=== PATIENT | female | born 1935 | race Caucasian/White ===

== ENCOUNTER 2024-04-19 10:45 | Inpatient (IN) | payer BC, MEDICARE ==
[~2024-04-19] VITALS: Ht 157.5 cm; Wt 53.5 kg
[2024-04-19] MEDS ORDERED: SYNTHROID (11:31)
[2024-04-19] MEDS ORDERED: TOPROL XL (11:31)
[2024-04-19] MEDS ORDERED: LORTAB (11:31)
[2024-04-19] MEDS ORDERED: ATIVAN (11:31)
[2024-04-19] MEDS ORDERED: LOTREL (11:31)
[2024-04-19] MEDS ORDERED: TRAMADOL (11:31)
[2024-04-19 12:00] LABS: CALCIUM 8.5 mg/dL (8.5-10.1); CARBON DIOXIDE 23 mmol/L (21-32); CHLORIDE 106 mmol/L (98-107); CREATININE 1.2 mg/dL (0.6-1.3); EOSINOPHILS % (AUTO) 0.1 % (0.0-7.0); GLUCOSE 152 mg/dL (74-106); LYMPHOCYTES # (AUTO) 0.9 K/uL (0.8-4.8); NEUTROPHILS % (AUTO) 86.8 % (38.5-71.5); POTASSIUM 4.7 mmol/L (3.5-5.1); SODIUM SERUM 140 mmol/L (136-145); UREA NITROGEN, BLOOD 54 mg/dL (7-18)
[2024-04-19 12:01] LABS: BASOPHILS % (AUTO) 0.2 % (0.0-2.0); LYMPHOCYTES % (AUTO) 7.6 % (20.5-51.5); MEAN CORPUSCULAR HEMOGLOBIN 31.5 uug (24.7-32.8); MEAN CORPUSCULAR HGB CONC 31 g/dL (32.3-35.6); MEAN CORPUSCULAR VOLUME 101.4 fL (75.5-95.3); MONOCYTES # (AUTO) 0.7 K/uL (0.1-1.30); MONOCYTES % (AUTO) 5.3 % (0.0-11.0); NEUTROPHILS # (AUTO) 10.7 K/uL (1.8-8.9); PLATELET COUNT (AUTO) 160 K/uL (179-408); RED CELL DISTRIBUTION WIDTH 16.8 % (12.3-17.7); WHITE BLOOD COUNT (AUTO) 12.3 K/uL (3.8-11.8)
[2024-04-19 12:03] LABS: *BILIRUBIN,URIN NEGATIVE (NEGATIVE); *BLOOD, URINE NEGATIVE (NEGATIVE); *CLARITY,URINE CLEAR (CLEAR); *COLOR,URINE YELLOW (YELLOW); *KETONES,URINE NEGATIVE (NEGATIVE); *PROTEIN,URINE NEGATIVE (NEGATIVE); *UROBILINOGEN,URINE 0.2 E.U./dl (NORMAL); LEUKOCYTE ESTERASE ,URINE NEGATIVE (NEGATIVE); NITRITE, URINE NEGATIVE (NEGATIVE); PH,URINE 5.5 (5.0-8.0); RED BLOOD CELL COUNT(AUTO) 1.38 MIL/uL (3.63-4.92); UGLUCOSE NEGATIVE (NEGATIVE)
[2024-04-19 12:04] LABS: DIFFERENTIAL COMMENT 1; HEMOGLOBIN 4.3 g/dL (10.9-14.3)
[2024-04-19 12:08] LABS: ALANINE AMINOTRANSFERASE 16 U/L (14-59); ALBUMIN 2.6 g/dL (3.4-5.0); ALKALINE PHOSPHATASE 33 U/L (50-136); ASPARTATE AMINOTRANSFERASE 14 U/L (15-37); BILIRUBIN,DIRECT 0.2 mg/dL (0.0-0.2); BILIRUBIN,TOTAL 0.6 mg/dL (0.2-1.0)
[2024-04-19 12:13] LABS: THYROID STIMULATING HORMONE 6.476 mIU/mL (0.358-3.740)
[2024-04-19 12:25] LABS: LACTIC ACID 3.5 mmol/L (0.4-2.0)
[2024-04-19 12:31] LABS: BAND % (MANUAL) 1 % (0-10); LYMPHOCYTES % (MANUAL) 5 % (20-40); MONOCYTES % (MANUAL) 7 % (2-10); NEUTROPHILS % (MANUAL) 87 % (42-75)
[2024-04-19] MEDS: IV NORMAL SALINE 1000 ML BAG IV ONE (12:33)
[2024-04-19] MEDS ORDERED: PANTOPRAZOLE SODIUM 40 MG VIAL ONE (12:35)
[2024-04-19] MEDS: PANTOPRAZOLE SODIUM 40 MG VIAL IV ONE (12:42)
[2024-04-19 13:16] LABS: *OCCULT BLOOD STOOL POSITIVE (NEGATIVE)
[2024-04-19 13:18] LABS: NT-PRO BNP 10333 pg/mL (0-125)
[2024-04-19] MEDS ORDERED: HYDROCODONE/APAP 5-325MG TABLET ONE (14:33)
[2024-04-19] MEDS ORDERED: HYDROCODONE/APAP 10-325 MG TABLET ONE ×2 (14:35→21:11)
[2024-04-19] MEDS: HYDROCODONE/APAP 10-325 MG TABLET PO ONE (14:43)
[2024-04-19] MEDS ORDERED: MAGNESIUM HYDROXIDE 30 ML LIQUID UDC PO PRN (14:45)
[2024-04-19] MEDS ORDERED: ACETAMINOPHEN 325 MG TABLET PO PRN (14:45)
[2024-04-19] MEDS ORDERED: REMEDY ESSENTIAL ZINC PASTE 113 GM TP PRN (14:45)
[2024-04-19] MEDS ORDERED: ONDANSETRON 4 MG/2 ML VIAL IV PRN (14:45)
[2024-04-19] MEDS ORDERED: HYDR-3980 PO (15:06)
[2024-04-19] MEDS ORDERED: ZOLP5TAB8 PO (15:06)
[2024-04-19] MEDS ORDERED: PANT40TA49 PO (15:06)
[2024-04-19] MEDS ORDERED: HYDR200T4 PO (15:06)
[2024-04-19] MEDS ORDERED: LEVO112T5 PO (15:06)
[2024-04-19] MEDS ORDERED: LORA0.5T48 PO (15:06)
[2024-04-19] MEDS ORDERED: EPIN0.3A4 IM (15:06)
[2024-04-19] MEDS ORDERED: METO-356 PO (15:06)
[2024-04-19] MEDS ORDERED: DENO60DI (15:06)
[2024-04-19 15:44] LABS: IRON, SERUM 51 ug/dL (50-175)
[2024-04-19] MEDS ORDERED: CYANOCOBALAMIN 1000 MCG/ML VIAL ONE (16:23)
[2024-04-19] MEDS: CYANOCOBALAMIN 1000 MCG/ML VIAL IM ONE (16:24)
[2024-04-19] MEDS ORDERED: MAG HYDROX/AL HYDROX/SIMETH 30 ML LIQUID UDC ONE (17:00)
[2024-04-19] MEDS: MAG HYDROX/AL HYDROX/SIMETH 30 ML LIQUID UDC PO ONE (17:06)
[2024-04-19 20:00] VITALS: BP 136/58; TEMP 97.7
[2024-04-19] MEDS: HYDROCODONE/APAP 10-325 MG TABLET PO PRN (21:18)
[2024-04-19 21:30] VITALS: BP 158/74; TEMP 98.5
[2024-04-19] MEDS ORDERED: PIPERACILLIN/TAZOBACTAM/D5W 50 ML IV ONE (21:30)
[2024-04-19] MEDS: PIPERACILLIN SODIUM/TAZOBACTAM 3.375 G in IV DEXTROSE 5% 50 ML IV ONE (21:33)
[2024-04-19 23:30] VITALS: BP 150/90; TEMP 98.5
[2024-04-20] VITALS (14 sets, daily range): BP systolic 131–172; BP diastolic 58–90; TEMP 97.7–98.7; O2SAT 97–98
[2024-04-20 00:17] LABS: LYMPHOCYTES # (AUTO) 0.8 K/uL (0.8-4.8); PLATELET COUNT (AUTO) 112 K/uL (179-408)
[2024-04-20 00:19] LABS: BASOPHILS % (AUTO) 0.2 % (0.0-2.0); EOSINOPHILS % (AUTO) 0.2 % (0.0-7.0); MEAN CORPUSCULAR HEMOGLOBIN 29.2 uug (24.7-32.8); MEAN CORPUSCULAR HGB CONC 33 g/dL (32.3-35.6); MEAN CORPUSCULAR VOLUME 87.8 fL (75.5-95.3); MONOCYTES # (AUTO) 0.8 K/uL (0.1-1.30); MONOCYTES % (AUTO) 8.3 % (0.0-11.0); NEUTROPHILS # (AUTO) 8.3 K/uL (1.8-8.9); NEUTROPHILS % (AUTO) 83.3 % (38.5-71.5); RED CELL DISTRIBUTION WIDTH 22.6 % (12.3-17.7)
[2024-04-20 00:26] LABS: RED BLOOD CELL COUNT(AUTO) 2.26 MIL/uL (3.63-4.92)
[2024-04-20 00:28] LABS: DIFFERENTIAL COMMENT 1; HEMATOCRIT 19.8 % (31.2-41.9); HEMOGLOBIN 6.6 g/dL (10.9-14.3)
[2024-04-20] MEDS: IV NS 1000 ML 1,000 ML IV PRN (03:36)
[2024-04-20 03:41] LABS: LYMPHOCYTES % (MANUAL) 27 % (20-40); MONOCYTES % (MANUAL) 6 % (2-10); NEUTROPHILS % (MANUAL) 67 % (42-75)
[2024-04-20] MEDS ORDERED: HYDROCODONE/APAP 10-325 MG TABLET ONE (04:18)
[2024-04-20] MEDS: PIPERACILLIN SODIUM/TAZOBACTAM 3.375 G in IV DEXTROSE 5% 50 ML IV SCH (05:15)
[2024-04-20] MEDS ORDERED: PIPERACILLIN/TAZOBACTAM/D5W 50 ML IV ONE (05:15)
[2024-04-20] MEDS ORDERED: PIPERACILLIN SODIUM/TAZOBACTAM 3.375 G in IV DEXTROSE 5% 50 ML IV SCH (06:00)
[2024-04-20 06:48] LABS: BASOPHILS % (AUTO) 0.5 % (0.0-2.0); DIFFERENTIAL COMMENT 0; EOSINOPHILS % (AUTO) 0.4 % (0.0-7.0); HEMATOCRIT 26.7 % (31.2-41.9); HEMOGLOBIN 9.1 g/dL (10.9-14.3); LYMPHOCYTES # (AUTO) 1.1 K/uL (0.8-4.8); LYMPHOCYTES % (AUTO) 13.3 % (20.5-51.5); MEAN CORPUSCULAR HEMOGLOBIN 31.1 uug (24.7-32.8); MEAN CORPUSCULAR HGB CONC 34 g/dL (32.3-35.6); MEAN CORPUSCULAR VOLUME 91.5 fL (75.5-95.3); MONOCYTES # (AUTO) 0.6 K/uL (0.1-1.30); MONOCYTES % (AUTO) 7.5 % (0.0-11.0); NEUTROPHILS # (AUTO) 6.4 K/uL (1.8-8.9); NEUTROPHILS % (AUTO) 78.3 % (38.5-71.5); PLATELET COUNT (AUTO) 115 K/uL (179-408); RED BLOOD CELL COUNT(AUTO) 2.91 MIL/uL (3.63-4.92); RED CELL DISTRIBUTION WIDTH 23.5 % (12.3-17.7); WHITE BLOOD COUNT (AUTO) 8.2 K/uL (3.8-11.8)
[2024-04-20 06:57] LABS: ALANINE AMINOTRANSFERASE 20 U/L (14-59); ALKALINE PHOSPHATASE 44 U/L (50-136); ASPARTATE AMINOTRANSFERASE 25 U/L (15-37); CALCIUM 8.6 mg/dL (8.5-10.1); CARBON DIOXIDE 27 mmol/L (21-32); CHLORIDE 109 mmol/L (98-107); CREATININE 1.3 mg/dL (0.6-1.3); GLUCOSE 95 mg/dL (74-106); MAGNESIUM 2.7 mg/dL (1.8-2.4); PHOSPHOROUS 3.1 mg/dL (2.5-4.9); SODIUM SERUM 143 mmol/L (136-145); TOTAL PROTEIN, SERUM 5.6 g/dL (6.4-8.2); UREA NITROGEN, BLOOD 42 mg/dL (7-18)
[2024-04-20 09:23] LABS: NEUTROPHILS % (MANUAL) 75 % (42-75)
[2024-04-20 09:24] LABS: ANISOCYTOSIS 2+; LYMPHOCYTES % (MANUAL) 10 % (20-40); METAMYELOCYTES % 2 % (0-1); MONOCYTES % (MANUAL) 11 % (2-10); MYELOCYTES % 2 % (0-0); PLATELET ESTIMATE DECREASED
[2024-04-20] MEDS ORDERED: LORAZEPAM 0.5 MG TABLET PO PRN (09:30)
[2024-04-20] MEDS: PANTOPRAZOLE SODIUM 40 MG VIAL IV SCH (09:38)
[2024-04-20] MEDS: LEVOTHYROXINE SODIUM 112 MCG TABLET PO SCH (09:39)
[2024-04-20] MEDS: METOPROLOL SUCCINATE XL 25 MG TAB.SR.24H PO SCH (09:39)
[2024-04-20] MEDS: PIPERACILLIN SODIUM/TAZOBACTAM 3.375 G in IV DEXTROSE 5% 100 ML IV SCH (12:50)
[2024-04-20 14:02] LABS: BASOPHILS # (AUTO) 0.1 K/UL (0.0-0.2); EOSINOPHILS % (AUTO) 0.6 % (0.0-7.0); HEMATOCRIT 25.5 % (31.2-41.9); HEMOGLOBIN 8.4 g/dL (10.9-14.3); LYMPHOCYTES # (AUTO) 0.6 K/uL (0.8-4.8); LYMPHOCYTES % (AUTO) 8.1 % (20.5-51.5); MEAN CORPUSCULAR HEMOGLOBIN 30.2 uug (24.7-32.8); MEAN CORPUSCULAR HGB CONC 33 g/dL (32.3-35.6); MONOCYTES # (AUTO) 0.4 K/uL (0.1-1.30); MONOCYTES % (AUTO) 5.7 % (0.0-11.0); NEUTROPHILS # (AUTO) 6.3 K/uL (1.8-8.9); NEUTROPHILS % (AUTO) 84.6 % (38.5-71.5); PLATELET COUNT (AUTO) 119 K/uL (179-408); RED CELL DISTRIBUTION WIDTH 23.9 % (12.3-17.7); WHITE BLOOD COUNT (AUTO) 7.4 K/uL (3.8-11.8)
[2024-04-20 14:05] LABS: DIFFERENTIAL COMMENT 1
[2024-04-20] MEDS ORDERED: PANT40TA2 PO (14:30)
[2024-04-20] MEDS ORDERED: LEVO112T5 PO (14:30)
[2024-04-21] MEDS ORDERED: LEVOTHYROXINE SODIUM 112 MCG TABLET PO SCH (09:00)
[2024-04-21] MEDS ORDERED: METOPROLOL SUCCINATE XL 25 MG TAB.SR.24H PO SCH (09:00)
[2024-04-21] MEDS ORDERED: HYDROXYCHLOROQUINE SULFATE 200 MG TABLET PO SCH (09:00)
== END 2024-04-20 16:10 | disposition home or self-care (01) | DRG 811 ==
LOC: ER 10:45 → UNDOADMIN 19:31 → TRANSITION 19:31 → CCU 04-20 06:49
PROVIDERS: ADMIT Nurse Practitioner Acute Care; ATTEND Nurse Practitioner Acute Care
PROC: 30233N1 Transfusion of Nonautologous Red Blood Cells into Peripheral Vein, Percutaneous Approach (ICD-10-PCS; principal; 2024-04-20)
DX: D62 Acute posthemorrhagic anemia (principal); G93.41 Metabolic encephalopathy; R57.1 Hypovolemic shock; K25.4 Chronic or unspecified gastric ulcer with hemorrhage; I21.A1 Myocardial infarction type 2; C16.9 Malignant neoplasm of stomach, unspecified; E44.0 Moderate protein-calorie malnutrition; I42.2 Other hypertrophic cardiomyopathy; E87.20 Acidosis, unspecified; I50.32 Chronic diastolic (congestive) heart failure; N17.9 Acute kidney failure, unspecified; Z66 Do not resuscitate; E88.09 Other disorders of plasma-protein metabolism, not elsewhere classified; E03.9 Hypothyroidism, unspecified; M15.9 Polyosteoarthritis, unspecified; Z79.890 Hormone replacement therapy; Z95.818 Presence of other cardiac implants and grafts; I11.0 Hypertensive heart disease with heart failure; D72.829 Elevated white blood cell count, unspecified; I34.0 Nonrheumatic mitral (valve) insufficiency
CPT/HCPCS: 36415; 70030-TC; 70450; 71045; 83550; 83605; 83735; 84100; 84443; 84484; 85025; 85730; 86850; 86900; 86901; 86920; 87040; 93307; A4606; A4663; C1758; G0378; J2470; J2543; J3420; J7040; P9016